=== PATIENT | male | born 1940 | race Caucasian/White ===

== ENCOUNTER 2017-06-06 07:26 | Day surgery (SDC) | payer MEDICARE, BC ==
[2017-06-06] MEDS ORDERED: Lactated Ringers 1,000 ML IV SCH (08:00)
[2017-06-06] MEDS ORDERED: Propofol 200 MG/20 ML SDV ONE ×2 (08:28→10:15)
[2017-06-06] MEDS ORDERED: Midazolam 1 MG/ML 2 ML SDV ONE (08:28)
[2017-06-06] MEDS ORDERED: fentaNYL 100 MCG/2 ML SDV ONE (08:28)
[2017-06-06 11:20] VITALS: BP 136/87
--- NOTE | 2017-06-07 10:58 | OR ---
DATE OF PROCEDURE: 06/06/2017 POSTOPERATIVE DIAGNOSIS: Colon cancer screening. POSTOPERATIVE DIAGNOSIS: Small right colon polyp. PROCEDURE PERFORMED: Colonoscopy to the cecum with biopsy resection of a small right colon polyp. ANESTHESIA: IV anesthesia with monitored anesthesia care. INDICATION: This is a 77-year-old white male who is referred for a colonoscopy for colon cancer screening. He says his last colonoscopic exam was done ten years ago. I counseled him for the procedure including risks and alternatives, and he gave his informed consent to proceed. DESCRIPTION OF PROCEDURE: The patient was placed in the left lateral decubitus position. IV anesthesia was administered by the Anesthesia Service. Time-out was held. A rectal exam was performed, which was unremarkable. The flexible video Olympus colonoscope was introduced through his anus, up his rectum, and out his colon all way to the cecum. In the right colon, we did see a small polyp which was removed with the biopsy forceps. Once the cecum was reached, the scope was slowly withdrawn examining the mucosa throughout. No other mucosal abnormalities were noted. The scope was retroflexed in the rectum with the distal rectum appearing unremarkable. The scope was straightened and removed. He tolerated the procedure well. German Zendejas MD /[id number] DENISE
== END 2017-06-06 11:45 | disposition home or self-care (01) ==
LOC: JP.SDS 07:26
PROVIDERS: ATTEND Surgery
DX: Z12.11 Encounter for screening for malignant neoplasm of colon (principal); D12.6 Benign neoplasm of colon, unspecified; I10 Essential (primary) hypertension; E78.5 Hyperlipidemia, unspecified
CPT/HCPCS: 45380; 88305; J2250; J2704; J3010; J7120

== ENCOUNTER 2018-05-29 07:35 | Day surgery (SDC) | payer MEDICARE, BC ==
[~2018-05-29 07:35] MED LIST: Propofol 200 MG/20 ML SDV ONE; fentaNYL 100 MCG/2 ML SDV ONE
[2018-05-29] MEDS ORDERED: Lactated Ringers 1,000 ML IV SCH (07:45)
[2018-05-29] MEDS ORDERED: Propofol 200 MG/20 ML SDV ONE (09:57)
--- NOTE | 2018-05-29 10:58 | OR ---
DATE OF PROCEDURE: 05/29/2018 PREOPERATIVE DIAGNOSIS: History of colon polyps. POSTOPERATIVE DIAGNOSIS: Small hepatic flexure polyp. PROCEDURE PERFORMED: Colonoscopy to the cecum with biopsy, resection of the small hepatic flexure polyp. ANESTHESIA: IV anesthesia with monitored anesthesia care. INDICATION: This 78-year-old white male was referred for a colonoscopy. He has a history of colon polyps. His last colonoscopic exam was done about a year ago. I counseled him for the procedure including risks and alternatives and he gave his informed consent to proceed. DESCRIPTION OF PROCEDURE: The patient was placed in the left lateral decubitus position. IV anesthesia was administered by the Anesthesia Service. Time-out was held. A rectal exam was performed, which was unremarkable. The flexible video Olympus colonoscope was introduced through his anus, up his rectum, out of his colon all the way to the cecum. Once the cecum was reached, the scope was slowly withdrawn examining the mucosa throughout. At the hepatic flexure, we saw a small polyp, which was removed with a single bite of the biopsy forceps. The scope was withdrawn further with no other lesions noted. The scope was retroflexed in the rectum with the distal rectum appearing unremarkable. The scope was straightened and removed. He tolerated the procedure well. German Zendejas MD /[id number]
[2018-05-29 11:10] VITALS: BP 133/73
== END 2018-05-29 11:26 | disposition home or self-care (01) ==
LOC: JP.SDS 07:35
PROVIDERS: ATTEND Surgery
DX: K63.5 Polyp of colon (principal); K63.89 Other specified diseases of intestine; I10 Essential (primary) hypertension; E66.9 Obesity, unspecified; E78.5 Hyperlipidemia, unspecified; Z86.010 Personal history of colon polyps
CPT/HCPCS: 45380; J2704; J3010; J7120

== ENCOUNTER 2020-06-05 06:45 | Day surgery (SDC) | payer MEDICARE, BC ==
[2020-06-05] MEDS ORDERED: Sodium Chloride 0.9% 1,000 ML IV SCH (07:00)
[2020-06-05] MEDS ORDERED: Propofol 200 MG/20 ML SDV ONE (07:21)
[2020-06-05] MEDS ORDERED: fentaNYL 100 MCG/2 ML SDV ONE (07:21)
[2020-06-05] MEDS ORDERED: Midazolam 1 MG/ML 2 ML SDV ONE (07:21)
[2020-06-05 09:42] VITALS: BP 110/62; PULSE 51
--- NOTE | 2020-06-05 11:06 | OR ---
DATE OF PROCEDURE: 06/05/2020 SURGEON: Saroj Tay MD PROCEDURE: Colonoscopy. FINDINGS: Normal colonoscopy with poor colon prep. COMPLICATIONS: None. COUNTER CHECKER: None. ANESTHETIC: MAC. PREOPERATIVE DIAGNOSIS: Screening colonoscopy. POSTOPERATIVE DIAGNOSIS: Screening colonoscopy. RISKS: Risks, benefits, alternatives, and limitations including, but not limited to, infection, bleeding, and perforation were explained to the patient, who wished to proceed. DESCRIPTION OF PROCEDURE: The patient was placed in left lateral decubitus position. Digital rectal exam was performed without abnormality. The scope was introduced and advanced atraumatically to the ileocecal valve. Scope was brought back through the ascending, transverse, descending colon, and retroflexed. No evidence of old or new blood. No polyps. The prep was marginal with approximately 1 L or more of liquid. This was removed, and approximately 90% of the luminal surface could be seen. No abnormalities on retroflex. The patient tolerated the procedure well. Saroj Tay MD /[id number]
== END 2020-06-05 10:00 | disposition home or self-care (01) ==
LOC: JP.SDS 06:45
PROVIDERS: ATTEND Surgery
DX: Z12.11 Encounter for screening for malignant neoplasm of colon (principal); I10 Essential (primary) hypertension; E11.9 Type 2 diabetes mellitus without complications; E66.9 Obesity, unspecified; E78.5 Hyperlipidemia, unspecified; Z86.010 Personal history of colon polyps; Z68.34 Body mass index [BMI] 34.0-34.9, adult; Z98.890 Other specified postprocedural states
CPT/HCPCS: G0105; J2250; J2704; J3010; J7030